=== PATIENT | female | born 1940 | race Caucasian/White ===

== ENCOUNTER 2025-05-06 08:11 | Emergency (ER) | payer MEDICARE, BC, SELFPAY ==
[2025-05-06 08:11] VITALS: RESP 17; O2SAT 100
[2025-05-06 08:12] VITALS: BP 154/66; PULSE 89; RESP 16; TEMP 37.1; O2SAT 93
--- NOTE | 2025-05-06 08:13 | PC.NURSE ---
Dr. Glenroy Hdz on tele monitor to talk to pt. and assess pt., Dr. Moore also in ambulance bay talking to pt.
--- NOTE | 2025-05-06 08:14 | XR_ITS ---
Examination: CTA carotids with intravenous contrast CTA brain, head with intravenous contrast. 2-D sagittal, coronal reconstructions. 3-D reconstructions. Exam date and time: May 06, 2025, 0825 hours INDICATION: Stroke alert, onset left-sided body weakness beginning 0630 hours this morning CTDI: vol (mGy) 22.5 DLP: (mGycm) 460 Technique: Multiple CTA axial brain, head carotid images post intravenous contrast injection 75 cc, [id number]. 2-D sagittal, coronal reconstructions. 3-D reconstructions, 3-D post processing including vascular maximum intensity projection images. Low dose protocols were performed. One or more of the following dose reduction techniques were used; automated exposure control, adjustment of the mA and/or KV according to patient size, use of iterative reconstruction technique. Findings: Suspicious for septal edema at the lung apices No common carotid, carotid bifurcation or significant internal carotid artery stenoses Dominant left vertebral artery with no critical stenoses Basilar artery posterior cerebral branches fill with no large vessel occlusions Moderate calcification juxtasellar portions internal carotid arteries Occlusion of the M1 segment right middle cerebral artery axial image 72 with reduced filling of middle cerebral artery trifurcation vessels No large vessel anterior cerebral artery occlusions IMPRESSION: No significant neck arterial stenoses Occlusion of the M1 segment right middle cerebral artery
--- NOTE | 2025-05-06 08:14 | XR_ITS ---
Examination: CT brain head without contrast. 2-D sagittal coronal reconstructions Date and time of exam: May 06, 2025, 0818 hours INDICATIONS: Stroke alert, onset left-sided body weakness beginning 0630 hours today CTDI: vol (mGy): 46.1 DLP: (mGycm): 943 Technique: Multiple CT axial sections of the brain have been obtained, 5 mm slice thickness. Contrast has not been administered. 2-D sagittal, coronal reconstructions have been obtained Low dose protocols were performed. One or more of the following dose reduction techniques were used; automated exposure control, adjustment of the mA and/or KV according to patient size, use of iterative reconstruction technique. Findings: No significant ventricular enlargement. Low density in the right basal ganglia consistent with an acute infarct No acute hemorrhage either intra or extra-axial There is possible mass effect upon the right lateral ventricular system but no midline shift Fourth ventricle midline Cranial vault intact IMPRESSION: Acute appearing nonhemorrhagic infarct right basal ganglia
--- NOTE | 2025-05-06 08:14 | EKG_ITS ---
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
[2025-05-06 08:25] LABS: Basophils # (Auto) 0.0 Thou/mm3 (0.0-0.2); Basophils % (Auto) 1 % (0-2.5); Eosinophils # (Auto) 0.5 Thou/mm3 (0.0-0.5); Eosinophils % (Auto) 5 % (0-10); Hematocrit 30.6 % (36.0-46.0); Hemoglobin 9.6 g/dL (12.0-16.0); Immature Granulocytes Auto 0.07 Thou/mm3 (0.00-0.00); Lymphocytes # (Auto) 0.9 Thou/mm3 (1.0-4.8); Lymphocytes % (Auto) 10 % (10-50); Mean Corpuscular HGB Conc 31.4 g/dl (31.0-37.0); Mean Corpuscular Hemoglobin 26.8 pg (25.0-35.0); Mean Corpuscular Volume 86 fL (80-100); Monocytes # (Auto) 0.8 Thou/mm3 (0.0-0.8); Monocytes % (Auto) 9 % (0-12); Neutrophils # (Auto) 6.5 Thou/mm3 (1.8-7.7); Neutrophils % (Auto) 74 % (37-80); Nucleated Red Blood Cell # 0.00 Thou/mm3 (0.00-0.00); Nucleated Red Blood Cell % 0 /100 WBC (0); Platelet Count 604 Thou/mm3 (140-440); Red Blood Count 3.58 Miln/mm3 (4.00-5.20); White Blood Count 8.8 Thou/mm3 (3.6-11.0)
[2025-05-06 08:34] LABS: INR 1.0 (0.9-1.3); Partial Thromboplastin Time 29.0 Seconds (22.0-36.0); Prothrombin Time 10.6 Seconds (9.0-12.2)
[2025-05-06 08:53] LABS: Alanine Aminotransferase < 7 U/L (10-49); Albumin, Serum 2.9 gm/dL (3.4-4.8); Albumin/Globulin Ratio 1.5 (1.2-2.2); Alkaline Phosphatase 72 U/L (46-116); Anion Gap 7 (7-16); Aspartate Amino Transferase 13 U/L (0-34); BUN/Creatinine Ratio 7 Ratio (12-20); Bilirubin,Total 0.3 mg/dL (0.3-1.2); Blood Urea Nitrogen 5 mg/dL (9-23); Calcium 7.9 mg/dL (8.3-10.6); Calcium (Corrected) 8.8 mg/dL (8.5-10.1); Carbon Dioxide 30.8 mMol/L (20.0-31.0); Chloride 105 mMol/L (98-107); Creatinine (Component) 0.7 mg/dL (0.6-1.3); Globulin 1.9 gm/dL (2.3-3.5); Glucose 87 mg/dL (74-106); Magnesium 1.6 mg/dL (1.6-2.6); Osmolality,Calculated 281 (275-295); Potassium 3.8 mMol/L (3.4-5.1); Sodium 143 mMol/L (136-145); Total Protein 4.8 gm/dL (5.7-8.2); Troponin I < 0.020 ng/mL (0.0-0.045); eGFR > 60 See Note
[2025-05-06 09:01] LABS: HCG Titer if Positive Negative
--- NOTE | 2025-05-06 09:07 | ESCONSULT_ITS ---
Tele Neuro Consultation Consultation Date 05/06/25 Laboratory-Coagulation Panel PT 10.6 Seconds (9.0-12.2) 05/06/25 08:12 INR 1.0 (0.9-1.3) 05/06/25 08:12 APTT 29.0 Seconds (22.0-36.0) 05/06/25 08:12 Consultation Narrative [facility] TeleNeurology Consult Services Patient Name:???Yvonne Carey Date of :???1940 Identification Number:??? Date of Service:???05/06/2025 08:06:52 Diagnosis:?I63.311 - Cerebrovascular accident (CVA) due to thrombosis of right middle cerebral artery (HCCC) Impression: ?85yo woman w/PMH of HTN, hypothyroidism p/w left sided weakness, AMS on 07/03/24. EMS reports that staff at her facility found her with left sided weakness this morning so EMS was called. EMS noted left sided weakness, right gaze and confusion. She is unable to provide history but can follow simple commands. Her last known well time is unclear. NIHSS 18. CT Head shows an acute- subacute right basal ganglia infarct. Pt is not a candidate for thrombolytics due to being out of the 4.5 hour window. CTA Head/Neck shows a right M1 occlusion. Presentation is concerning for acute ischemic stroke based on history and exam, MRI Brain advised. Plan listed below was recommended to the ED physician by phone who will call MICHELLE and initiate transfer for possible thrombectomy per protocol. Our recommendations are outlined below. Recommendations: ? Stroke/Telemetry Floor ? Neuro Checks (Q4) ? Bedside Swallow Eval ? DVT Prophylaxis ? IV Fluids, Normal Saline ? Head of Bed Flat ? Euglycemia and Avoid Hyperthermia (PRN Acetaminophen) ? Aspirin per rectum ? Antihypertensives PRN if Blood pressure is greater than 220/120 or there is a concern for End organ damage/contraindications for permissive HTN. If blood pressure is greater than 220/120 give labetalol PO or IV or Vasotec IV with a goal of 15% reduction in BP during the first 24 hours. ?Routine MRI Brain without contrast to assess for stroke ?TTE (if not recently done) ?Lipid Profile, A1C ?PT/OT, Speech/Swallow evaluation Sign Out: ? Discussed with Emergency Department Provider Advanced Imaging: CTA Head and Neck Completed. LVO:Yes Discussed with MICHELLE :No Metrics: Last Known Well: Unknown Arrival Time: 05/06/2025 08:11:00 Activation Time: 05/06/2025 08:06:51 Initial Response Time: 05/06/2025 08:09:13 ETA Time reported by hospital: 5 Minutes.Symptoms: left sided weakness, AMS. Initial patient interaction: 05/06/2025 08:31:01 NIHSS Assessment Completed: 05/06/2025 08:34:44Patient is not a candidate for Thrombolytic. Thrombolytic Medical Decision: 05/06/2025 08:34:45Patient was not deemed candidate for Thrombolytic because of following reasons: LKW outside [address] Head: I personally reviewed all the CT images that were available to me and it showed: acute-subacute right basal ganglia infarct Primary Provider Notified of Diagnostic Impression and Management Plan on: 05/06/2025 09:05:20 History of Present Illness:Patient is a 85 year old Female. Patient was brought by EMS for symptoms of left sided weakness, AMS. 85yo woman w/PMH of HTN, hypothyroidism p/w left sided weakness, AMS on 05/03/25. EMS reports that staff at her facility found her with left sided weakness this morning so EMS was called. EMS noted left sided weakness, right gaze and confusion. She is unable to provide history but can follow simple commands. Her last known well time is unclear. Past Medical History: Other PMH:? see hpi unable to obtain due to:?? Patient Is Confused Medications: No Anticoagulant use? Antiplatelet use:?Yes?aspirin Reviewed EMR for current medications Allergies:? Reviewed Allergies Unable To Obtain Due To:?Patient Is Confused Social History: Unable To Obtain Due To Patient Status :?Patient Is Confused Family History: Family History Cannot Be Obtained Because:Patient Is Confused ROS :?ROS Cannot Be Obtained Because:? Patient Is Confused Past Surgical History: Past Surgical History Cannot Be Obtained Because: Patient Is Confused Examination: BP(/),?Pulse(80), 1A: Level of Consciousness - Alert; keenly responsive?+ 0 1B: Ask Month and Age - Both Questions Right?+ 0 1C: Blink Eyes & Squeeze Hands - Performs Both Tasks?+ 0 2: Test Horizontal Extraocular Movements - Forced Gaze Palsy: Cannot Be Overcome ?+ 2 3: Test Visual Rasmussen - Complete Hemianopia?+ 2 4: Test Facial Palsy (Use Grimace if Obtunded) - Minor paralysis (flat nasolabial fold, smile asymmetry)?+ 1 5A: Test Left Arm Motor Drift - No Movement?+ 4 5B: Test Right Arm Motor Drift - No Drift for 10 Seconds?+ 0 6A: Test Left Leg Motor Drift - No Movement?+ 4 6B: Test Right Leg Motor Drift - No Drift for 5 Seconds?+ 0 7: Test Limb Ataxia (FNF/Heel-Whitney) - No Ataxia?+ 0 8: Test Sensation - Complete Loss: Cannot Sense Being Touched At All?+ 2 9: Test Language/Aphasia - Severe Aphasia: Fragmentary Expression, Inference Needed, Cannot Identify Materials?+ 2 10: Test Dysarthria - Mild-Moderate Dysarthria: Slurring but can be understood?+ 1 11: Test Extinction/Inattention - No abnormality?+ 0 NIHSS Score:?18 Pre-Morbid Modified [place] Scale: Unable to assess Spoke with :?ED This consult was conducted in real time using interactive audio and video technology. Patient was informed of the technology being used for this visit and agreed to proceed. Patient located in hospital and provider located at home/office setting. Patient is being evaluated for possible acute neurologic impairment and high probability of imminent or life-threatening deterioration. I spent total of 35 minutes providing care to this patient, including time for face to face visit via telemedicine, review of medical records, imaging studies and discussion of findings with providers, the patient and/or family. Dr Glenroy Hdz [facility] For Inpatient follow-up with [facility] physician please call [facility] at . As we are not an outpatient service for any post hospital discharge needs please contact the hospital for assistance. If you have any questions for the [facility] physicians or need to gen nsult for clinical or diagnostic changes please contact us via [facility] at . Non-radiologist review of imaging performed to assist with emergent clinical decision-making. Remote physician workstations do not possess the same resolution, calibration, or diagnostic capabilities as hospital-based radiology reading stations, and formal radiologist read is necessary. Signature :Gilmar Hdz
--- NOTE | 2025-05-06 09:08 | EDNOTE_ITS ---
Altered Mental Status RME/HPI General Chief Complaint: Altered Mental Status Stated Complaint: possible stroke Time Seen by Provider: 05/06/25 08:14 Arrival date/time: 05/06/25 08:11 RME / HPI RME / HPI narrative: 85-year-old female correction resident presented via EMS with new onset altered mentation and left sided weakness, found altered approximately 10 minutes before EMS was called; last known well possibly at 06:30 or earlier, though it is unclear exact time. History was obtained from the correction nurse and EMS. Past medical history includes hypertension, hyperlipidemia, hypothyroidism, and atrial fibrillation. Patient denies other symptoms. Related Data Home Medications ?Medication ?Instructions ?Recorded ?Confirmed ASPIRIN (ASA 81MG EC) 81 mg PO QDAY ##0 03/29/17 CRANBERRY CONC/ASCORBIC ACID 4,200 mg PO QDAY ##0 03/17 08/31 (CRANBERRY + VIT C SOFTGEL) Cyanocobalamin (B12 Health Booster) 1,000 mcg PO QDAY ##0 03/29/17 Fluticasone/Salmeterol DISKUS * 1 puff inhalation BID #0 puffs 03/29/17 (ADVAIR DISKUS 100/50 *) Hydrocodone/Acetaminophen * (NORCO 1 tab PO Q6H PRN PA IN #0 tabs 03/29/17 5/325 *) Levothyroxine * (SYNTHROID *) 75 mcg PO QDAY #0 tabs 1 biotin 2,500 mcg capsule 5,000 mcg PO QDAY #0 caps cholecalciferol (vitamin D3) 50 5,000 iu PO QDAY #0 ca ps 03/29/17 mcg (2,000 unit) capsule (D3-2000) coenzyme Q10 100 mg capsule 100 mg ENGINEER SYSTEMS QDAY ##0 (CoQ-10) furosemide 40 mg tablet (Lasix) 40 mg PO QDAY #0 tabs 03/29/17 metoprolol tartrate 25 mg tablet 25 mg PO BID #0 tabs 03/29/17 omeprazole 20 mg capsule,delayed 20 mg PO QDAY ##0 release potassium chloride 20 mEq 20 meq PO QDAY ##0 03/29/17 tablet,extended release(part/cryst) pravastatin 20 mg tablet 20 mg PO HS #0 tabs 03/29/17 (Pravachol) Allergies Allergy/AdvReac Type Severity Reaction Status Date / Time sulfamethoxazole Allergy Mild Rash Verified 03/29/17 11:50 Review of Systems Review of Systems Systems Reviewed: All systems reviewed, normal except as documented Past Medical History Past Medical History Comments PMH COMMENT: PAST MEDICAL HISTORY - Hypertension - Hyperlipidemia - Hypothyroidism - Atrial fibrillation ED Exam Narrative Physical exam: General: Elderly and frail. HEENT: Appear normal with no scleral icterus. Pupils equal bilaterally. R gaze deviation. Neck: Atraumatic, supple. Cardiac: Regular rate, regular rhythm. Respiratory: No respiratory distress, clear lungs bilaterally with no abnormal breath sounds. Abdomen: Soft, nontender, nondistended, no rebound, no guarding MS: Extremities atraumatic, no edema, no calf tenderness to palpation. Skin: Cool, dry, intact. Neurologic: Alert, oriented to person, place, and time. Left facial droop; right gaze deviation; left arm and leg flaccid; sensation diminished on left side. NIHSS 18 Psychological: Cooperative and participatory with examination. Course Course Course Narrative: 905h: Tele neuro called back about pts CTA results. Does show a right M1 occlusion. Recommends transfer to higher level of care for neuro intervention. Recommends aspirin only at present. 17h: Spoke w Dr. Andino regarding [facility] regarding patient for transfer. Transfer accepted. Quality Measures Suspected type of Stroke: Acute Ischemic Tenecteplase given: Reason(s) TPA not given: Outside the time window not given stroke Orders Category Date Time Status Bedside Blood Glucose NOW Care 05/06/25 08:14 Completed Child Caregiver NOW Care 05/06/25 08:14 Completed Continuous Pulse Oximetry NOW Care 05/06/25 08:14 Completed EKG (ED ONLY) *Do not use* NOW Care 05/06/25 08:14 Completed In and Out Catheter NEEDED Care 05/06/25 08:14 Completed Insert IV NOW Care 05/06/25 08:14 Completed NIH Stroke Scale now Care 05/06/25 08:14 Completed NPO NOW Care 05/06/25 08:14 Completed Nurse Swallow Screen x1 Care 05/06/25 08:14 Completed Consult to Neurology / Tele-Neurology Routine Cons 05/06/25 08:14 Active Referral - Flatbed Owner Operator Stat Cons 05/06/25 09:[address] angio stroke protocol Stat Exams 05/06/25 08:[address] stroke protocol Stat Exams 05/06/25 08:14 Completed EKG (ED Only) Stat Exams 05/06/25 08:14 Draft CBC Stat Lab 05/06/25 08:12 Completed Comprehensive Metabolic Panel Stat Lab 05/06/25 08:12 Completed Drug Screen,Urine Stat Lab 05/06/25 08:50 Completed HCG Titer if Positive Stat Lab 05/06/25 08:12 Completed Magnesium Stat Lab 05/06/25 08:12 Completed Partial Thromboplastin Time Stat Lab 05/06/25 08:12 Completed Prothrombin Time with INR Stat Lab 05/06/25 08:12 Completed Troponin I Stat Lab 05/06/25 08:12 Completed Urinalysis, C/S if Indicated Stat Lab 05/06/25 08:50 Completed Urine Culture Stat Lab 05/06/25 08:50 Received Aspirin Supp Med 05/06/25 09:07 Discontinued 300 mg SD X1 ONE Oxygen Delivery NOW RT 05/06/25 08:14 Completed Vital Signs Vital signs: Vital Signs Temperature 98.7 F 05/06/25 08:12 Pulse Rate 89 05/06/25 08:12 Respiratory Rate 16 05/06/25 08:12 Blood Pressure 154/66 H 05/06/25 08:12 Pulse Oximetry (%) 93 L 05/06/25 08:12 Oxygen Delivery Method Room Air 05/06/25 08:12 Altered Mental Status MDM Narrative MDM Narrative:: This 85-year-old female correction resident with a history of hypertension, hyperlipidemia, hypothyroidism, and atrial fibrillation presented via EMS with new onset altered mentation and left-sided weakness, found altered approximately 10 minutes before EMS call. Last known well was possibly at 06:30 or earlier, though timing remains unclear. Multiple historians provided information, including the correction nurse and EMS. On examination, she is elderly and frail with left facial droop, right gaze deviation, flaccid paralysis of the left arm and leg, and diminished sensation on the left side, with sensation present in the left face. Pupils are equal bilaterally. NIHSS scores of 18 were documented, indicating severe neurologic deficit. Imaging revealed early acute infarct in the right basal ganglia on CT brain; CT angiography of the head and neck reveals a right M1 occlusion. Teleneurology recommending hospital transfer and aspirin administration at this time. Given the acute presentation, high NIHSS score, advanced imaging findings, and teleneurology recommendation for transfer, the patient is at high risk for morbidity and mortality. Transfer for admission and further management is indicated for definitive management and further evaluation. Patient data External records reviewed:: [facility] previous records and EMS form Clinical information provided by:: patient and EMS Social determinants that could affect healthcare access:: none Patient has the following chronic illnesses:: - Hypertension - Hyperlipidemia - Hypothyroidism - Atrial fibrillation How is presenting disease/condition affected by chronic disease/condition?: caused by Evaluation data The following diagnostics were reviewed and interpreted by me:: lab results, radiology exam(s) and EKG tracing(s) Lab and/or radiology exams considered but not ordered:: none Interpretation Summary: as noted. Medications / Prescriptions Medications or Prescriptions considered but not ordered:: none Medication administrations:: Medication Administration History Discontinued Medications Aspirin (Aspirin 300 Mg Supp) 300 mg SD X1 ONE Stop: 05/06/25 09:08 . Consultations Consultation(s) initiated? (list below): Yes Diagnosis Differential diagnosis altered mental status: altered mental status, delirium, hypoglycemia, hyponatremia and other Most likely diagnosis given after review of the tests above:: Acute ischemic stroke Admission Indicated Admission indicated?: not indicated (Transfer indicated) Admission Request Was there a request for admission?: No Disposition Plan Disposition Plan: Transfer Critical Care Time Critical Care Time Total Critical Care Time (min.): 38 Attestation: The high probability of a clinically significant, sudden or life threatening deterioration required my full and direct attention, intervention and personal management. The aggregate critical care time was [38] minutes. This time is in addition to time spent performing reported procedures but includes the following: [x] Data Review and interpretation [x] Patient assessment and monitoring of vital signs [x] Documentation [x] Medication orders and management Discharge Plan Plan Patient Disposition: Xfer Acute Care [facility] Pt Being Transferred to: [facility] Service Needed for Transfer: Neurology Prescriptions/Referrals Prescriptions/Med Rec: No Action ASPIRIN (ASA 81MG EC) 81 MG TABLET, ENTERIC COATED 81 mg PO QDAY Qty: 0 furosemide [Lasix] 40 MG tablet 40 mg PO QDAY Qty: 0 potassium chloride 20 MEQ tablet,ER particles/crystals 20 meq PO QDAY Qty: 0 omeprazole 20 MG capsule,delayed release(DR/EC) 20 mg PO QDAY Qty: 0 pravastatin [Pravachol] 20 MG tablet 20 mg PO HS Qty: 0 coenzyme Q10 [CoQ-10] 100 MG capsule 100 mg ENGINEER SYSTEMS QDAY Qty: 0 metoprolol tartrate 25 MG tablet 25 mg PO BID Qty: 0 biotin 2,500 MCG capsule 5,000 mcg PO QDAY Qty: 0 cholecalciferol (vitamin D3) [D3-2000] 2,000 UNIT capsule 5,000 iu PO QDAY Qty: 0 CRANBERRY CONC/ASCORBIC ACID (CRANBERRY + VIT C SOFTGEL) 1 EACH capsule 4,200 mg PO QDAY Qty: 0 Cyanocobalamin (B12 Health Booster) 1,000 MCG/15 ML ORAL.SUSP 1,000 mcg PO QDAY Qty: 0 Fluticasone/Salmeterol DISKUS * (ADVAIR DISKUS 100/50 *) 1 DISK/DEV DISK.W.DEV 1 puff Inhalation BID Qty: 0 Hydrocodone/Acetaminophen * (NORCO 5/325 *) 1 TAB tablet 1 tab PO Q6H PRN (Reason: PAIN) Qty: 0 Levothyroxine * (SYNTHROID *) 75 MCG tablet 75 mcg PO QDAY Qty: 0 Referrals: Ang([facility]),Nicole Carrera MD [Primary Care Provider, Internal Medicine] - In 1 week Problem List Clinical Impression: Ischemic cerebrovascular accident (CVA), 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
[2025-05-06 09:14] VITALS: BP 162/87; PULSE 90; RESP 17; TEMP 37.1; O2SAT 100
--- NOTE | 2025-05-06 09:15 | PC.NURSE ---
bs is 72- notified dr lees. no orders given.
[2025-05-06 09:19] LABS: Collection Type, Urine Catheter
--- NOTE | 2025-05-06 09:19 | PC.NURSE ---
pt.'s best friend Annabel Hong is here to see pt. Annabel states that she and pt. have been best friends for 62 years. Annabel states she saw pt. yesterday and she was fine. Annabel states pt. had a cancer mass removed at [facility] 1 week ago.
--- NOTE | 2025-05-06 09:20 | PC.NURSE ---
Annabel Hong states pt. has A fib and has been to [facility] X 2 to get it fixed.
[2025-05-06 09:49] LABS: Bacteria,Urine 1+; Bilirubin,Urine Negative (Negative); Blood,Urine 2+ (Negative); Budding Yeast,Urine Present; Clarity,Urine Clear (Clear/Hazy); Color,Urine Lt-Yellow (Lt Yel-Yel); Glucose, Urine Negative (Negative); Ketones,Urine Negative (Negative); Leukocyte Esterase,Urine Positive (Negative); Nitrite,Urine Negative (Negative); PH,Urine 6.0 (5.0-7.0); Protein,Urine Negative (Neg - Trace); RBC,Urine 21 /hpf (0-3); Specific Gravity,Urine 1.015 (1.001-1.035); Squamous Epithelial Cell,Urine 1 /hpf (0-5); Urobilinogen,Urine Negative mg/dL (0.0-1.0); WBC,Urine 52 /hpf (0-5)
[2025-05-06 09:51] LABS: Amphetamine/Methamp Scrn,U Negative (Negative); Barbiturate Screen,Urine Negative (Negative); Benzodiazepines Screen,Urine Negative (Negative); Benzoylecgonine Screen, Ur Negative (Negative); Culture Indicated,Urine Yes; Fentanyl Screen,Urine Negative (Negative); Opiate Screen,Urine Positive (Negative); THC Screen,Urine Negative (Negative)
--- NOTE | 2025-05-06 10:04 | PC.CC ---
Addendum entered by Joelle Sanders RN 05/06/25 10:39: correction: [facility] can not provided the service the patient needs. Addendum entered by Joelle Sanders RN 05/06/25 10:38: Annabel had a long phone conversation with pt's son Jann Carey. I observed Annabel a few times informing Jann that the transfer to [facility] can be canceled if they prefer [facility]. She explained to him that we can stop the transfer to [place] and will start the transfer request with [facility]. She provided an estimated time of approx an hour process to start a new transfer request and transport arrangement if [facility] accepts. At 0953: Jann gave consent to continue with the transfer to [facility]. Original Note: 38: called pt's son Jann Carey, provided acceptance information to Jann. He voiced his concerns of why the patient can't go to [facility], I informed him that they can provide the service that the patient needs. He then stated why she couldn't to [facility]. I informed him that we have a protocol we follow and [facility] is 1st to call and [facility] is 2nd. Annabel billing coordinator at pt's bedside and transfered the call to her to answer questions. 27: received call back from [facility]. flight crew accepted with an ETA OF 15-20 MIN from now. Transfer packet w/ cd created. 0921: called [facility] to set up transport - will call me back. 0917: after discussing case, Dr. Andino accepted the patient. 0915: received call back from Brien johnson/ [employer] and Dr. Uvaldo Andino from [facility] ED. Connected Dr. Andino with Dr. Moore. Clinicals and images sent during coversation 0909: called [facility] to initiate transfer. spoke to Brien. He stated he will call back 0907: received order to transfer pt for M1 Occlusion CVA for neurosurgery.
--- NOTE | 2025-05-06 10:05 | PC.NURSE ---
Annabel RN and transfer nurse here talking with Annabel Hong and pt.'s son Jann on the phone, per Annabel Jann is in control of everything.
--- NOTE | 2025-05-06 10:12 | PC.LAC ---
Addendum entered by Annabel Bernla RN 05/07/25 08:11: This is a nurse note, not a qa consultant note Original Note: Rn Oncology Clinical: Events over previous 1 hour: 1. pt accepted at [facility] - case background and info given to accepting neuro-interventionalist, Dr Sánchez. Requesteed to speak with family, who are not at bedside. Per patient's best friend, who is at bedside, pt's son, Jann is the decision-maker. Transfer RN in room on the phone with Jann to obtain consent for transfer. Jann and his have concerns about transferring to [facility] stating we are creating a hardship on the family and that they are providing consent under duress. I explained carefully that we are trying to provide informed decision-making but our transfer protocol is set up with [facility] as the first call because the facility is closer and is a [facility] stroke [facility]. I explained the LVO, and that time is of the essence. I explained why time is critical - so we can, possibly, provide re-perfusion and, therefore, increased functioning as an outcome. This explanation was witnessed by Bernice transfer RN. During this time, [employer] arrived and explained that there is weather coming in and that they would not be able to fly to [place], but they still are good to fly to [facility]. This was explained to the best friend at the bedside, but this occurred after my conversation with Jann. I looped in the Director over the transfer center. Ultimately, Jann said just send her I clearly said we can stop everything and go to [facility], but it would result in a delay in providing intervention because we would have to re-initiate the transfer with another facility.
--- NOTE | 2025-05-06 10:12 | PC.NURSE ---
Pt. darren mccabe and 48 niner hugh sent home with Annabel Hong.
== END 2025-05-06 10:12 | disposition short-term general hospital (02) ==
PROVIDERS: Emergency Provider Family Medicine; PCP Hospitalist
DX: I63.311 Cerebral infarction due to thrombosis of right middle cerebral artery (principal); E03.9 Hypothyroidism, unspecified; E78.5 Hyperlipidemia, unspecified; I10 Essential (primary) hypertension; I48.91 Unspecified atrial fibrillation; R29.718 NIHSS score 18
CPT/HCPCS: 36415; 51701; 70450; 70496; 70498; 80053; 80307; 81001; 83735; 84484; 84703; 85025; 85610; 85730; 87086; 87106; 93005; 99285; A4649; Q9967